=== PATIENT | female | born 1990 | race Caucasian/White ===

== ENCOUNTER 2017-01-02 10:10 | Emergency (ER) | payer OTHER, BC ==
[~2017-01-02] VITALS: Ht 172.7 cm; Wt 101.8 kg
[~2017-01-02 10:10] MED LIST: ALBUAER2 INH; AMPH30CA3 PO; DOXY50CA PO; FLUT0.15 NAE; HYOS1TAB PO; MONT1TAB3 PO
[2017-01-02 10:11] VITALS: TEMP 37.4; Ht 172.7 cm; Wt 101.8 kg
[2017-01-02] MEDS ORDERED: ALBU4TAB10 PO (11:01)
[2017-01-02] MEDS ORDERED: PRENTAB26 PO (11:01)
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
[2017-01-02 14:26] VITALS: BP 125/77; PULSE 78; O2SAT 99
== END 2017-01-02 14:28 | disposition home or self-care (01) ==
LOC: C.EDB 10:12
DX: O9A.212 Injury, poisoning and certain other consequences of external causes complicating pregnancy, second trimester (principal); S39.012A Strain of muscle, fascia and tendon of lower back, initial encounter; V43.52XA Car driver injured in collision with other type car in traffic accident, initial encounter; J45.909 Unspecified asthma, uncomplicated; K58.9 Irritable bowel syndrome, unspecified; K90.0 Celiac disease; M32.9 Systemic lupus erythematosus, unspecified; Z79.899 Other long term (current) drug therapy; Z91.018 Allergy to other foods; Z91.040 Latex allergy status; Z91.09 Other allergy status, other than to drugs and biological substances

== ENCOUNTER 2017-03-20 16:20 | Outpatient (CLI) | payer BC ==
[~2017-03-20 16:20] MED LIST changes: +ALBU4TAB10 PO; -ALBUAER2 INH; +PRENTAB26 PO
== END 2017-03-20 17:30 | disposition home or self-care (01) ==
LOC: C.OPB 16:20 → C.LD 16:20 → C.OPB 17:30
PROVIDERS: ATTEND Obstetrics & Gynecology
DX: O36.8190 Decreased fetal movements, unspecified trimester, not applicable or unspecified (principal); Z3A.00 Weeks of gestation of pregnancy not specified

== ENCOUNTER 2017-03-23 10:13 | Outpatient (CLI) | payer BC ==
[~2017-03-23] VITALS: Ht 172.7 cm; Wt 115.0 kg
[2017-03-23] MEDS ORDERED: VNTHFA/IN INH (10:46)
[2017-03-23] MEDS ORDERED: HYDR200T5 PO (10:47)
[2017-03-23 10:51] VITALS: Ht 172.7 cm; Wt 115.0 kg
--- NOTE | 2017-03-23 12:35 | Discharge Instructions ---
Discharge Instructions Date of Service Mar 23, 2017. Admission Reason for Admission: NST Discharge Discharge Diagnosis / Problem: PTL. decrease movement Discharge Goals Goal(s): Continuing OB care Activity Recommendations Activity Limitations: as noted below SPECIAL CARE INSTRUCTIONS: Call Doctor if: * Regular contractions every 5 minutes or greater than contractions in one hour. * Bleeding * Water breaks or is leaking * Decreased movement * Fever >100.4 degrees F * Pain not relieved by routine measures or pain medication ordered. FOLLOW UP VISIT: Return to Labor and Delivery on for /call for appointment time . Follow-up Visit with: When: . Current Hospital Diet Patient's current hospital diet: Discharge Diet Recommended Diet: Regular Diet Pending Studies Studies pending at discharge: no Medical Emergencies . Who to Call and When: Medical Emergencies: If at any time you feel your situation is an emergency, please call 911 immediately. . Non-Emergent Contact Non-Emergency issues call your: Specialist . . "Provider Documentation" section prepared by Jean Saldana. . VTE Core Measure Inpt VTE Proph given/why not?: Treatment not indicated
--- NOTE | 2017-03-23 12:38 | Progress Note ---
Progress Note Date of Service Mar 23, 2017. Progress Note Pt seen and evaluated course.labs .PMH, PSH. Rober and allergies reviewed FHR; CAT1 Cts ;2-3 Ve Unchanged from office exam Pt now feels movement and is pleased d/c home with instructions
== END 2017-03-23 12:29 | disposition home or self-care (01) ==
LOC: C.OPB 10:13 → C.LD 10:14 → C.OPB 12:29
PROVIDERS: ATTEND Obstetrics & Gynecology
DX: O60.00 Preterm labor without delivery, unspecified trimester (principal); O36.8190 Decreased fetal movements, unspecified trimester, not applicable or unspecified; Z3A.00 Weeks of gestation of pregnancy not specified

== ENCOUNTER 2017-04-06 14:14 | Outpatient (CLI) | payer BC ==
[~2017-04-06 14:14] MED LIST changes: -ALBU4TAB10 PO; -AMPH30CA3 PO; -DOXY50CA PO; -FLUT0.15 NAE; +HYDR200T5 PO; -HYOS1TAB PO; -MONT1TAB3 PO; +VNTHFA/IN INH
[2017-04-06] MEDS ORDERED: OXYCODONE/ACETAMINOPHEN 5-325 TAB PO PRN (14:45)
[2017-04-06 15:13] LABS: BASO % 0.1 %; BASO ABS # 0.01 K/uL (0-0.2); COMPLETE YES; EOS % 0.1 %; HEMATOCRIT 37.9 % (37-47); IG% 0.3 %; LYMPH % 11.4 %; LYMPH ABS # 1.54 K/uL (1.2-3.4); MEAN CELL VOLUME 93.6 fL (80-100); MEAN CORPUSCULAR HEMOGLOBIN 32.6 pg (25-34); MEAN CORPUSCULAR HGB CONC 34.8 g/dl (32-36); MONO % 7.4 %; NEUT % 80.7 %; PLATELET COUNT 178 K/uL (130-400); RED BLOOD COUNT 4.05 M/uL (4.2-5.4); WHITE BLOOD COUNT 13.46 K/uL (4.8-10.8)
[2017-04-06 15:36] LABS: URINE APPEARANCE CLEAR (CLEAR); URINE BILIRUBIN NEG (NEG); URINE COLOR DK YELLOW; URINE EPITHELIAL CELL AUTO >30 /lpf (0-5); URINE NITRITE NEG (NEG); UROBILINOGEN NEG (NEG); ZZUR CULT IF INDIC CLEAN CATCH NO
[2017-04-06 15:41] LABS: MANUAL MICROSCOPIC REQUIRED? NO; REVIEW REQ? NO
[2017-04-06 15:53] LABS: ALT/SGPT 17 U/L (12-78); AST/SGOT 13 U/L (15-37); BLOOD UREA NITROGEN 8 mg/dl (7-18); BUN/CREATININE RATIO 14.6 (10-20); CALCIUM 8.8 mg/dl (8.5-10.1); CARBON DIOXIDE 24 mmol/L (21-32); CHLORIDE 107 mmol/L (98-107); CREATININE 0.58 mg/dl (0.60-1.20); GLUCOSE 111 mg/dl (70-99); POTASSIUM 3.7 mmol/L (3.5-5.1); SODIUM 135 mmol/L (136-145)
[2017-04-06 15:56] LABS: ALB/GLOB RATIO 0.7 (0.9-2); ALKALINE PHOSPHATASE 185 U/L (45-117)
[2017-04-06 16:13] LABS: URINE PROTIEN/CREAT RATIO 0.2 (0-0.2); URINE TOTAL PROTEIN 18.8 mg/dl (0-11.9)
--- NOTE | 2017-04-06 16:37 | Discharge Instructions ---
Discharge Instructions Date of Service Apr 06, 2017. Admission Reason for Admission: Blood Pressure Check Discharge Discharge Diagnosis / Problem: Musculoskeletal pain of Discharge Goals Goal(s): Continuing OB care Medications Continue Dispensed Medications: other Activity Recommendations Activity Limitations: as noted below SPECIAL CARE INSTRUCTIONS: Call Doctor if: * Regular contractions every 5 minutes or greater than 5 contractions in one hour. * Bleeding5 * Water breaks or is leaking * Decreased movement * Fever >100.4 degrees F * Pain not relieved by routine measures or pain medication ordered. FOLLOW UP VISIT: Return to Labor and Delivery on for /call for appointment time . Follow-up Visit with: When: . Current Hospital Diet Patient's current hospital diet: Discharge Diet Recommended Diet: Regular Diet Pending Studies Studies pending at discharge: no Work Instructions Return To Work: after follow-up (patient to be off from work until after delivery, period) Medical Emergencies . Who to Call and When: Medical Emergencies: If at any time you feel your situation is an emergency, please call 911 immediately. . Non-Emergent Contact Non-Emergency issues call your: Specialist Call Non-Emergent contact if: temperature is above 100.5, your pain is not controlled . . "Provider Documentation" section prepared by Abraham Johnson. . VTE Core Measure Inpt VTE Proph given/why not?: Treatment not indicated
== END 2017-04-06 16:45 | disposition home or self-care (01) ==
LOC: C.OPB 14:14 → C.LD 14:14 → C.OPB 16:45
PROVIDERS: ATTEND Obstetrics & Gynecology
DX: O26.893 Other specified pregnancy related conditions, third trimester (principal); M54.9 Dorsalgia, unspecified; R51 Headache; R10.2 Pelvic and perineal pain; M25.559 Pain in unspecified hip; Z3A.37 37 weeks gestation of pregnancy

== ENCOUNTER 2017-04-14 19:33 | Inpatient (IN) | payer BC ==
[~2017-04-14] VITALS: Ht 172.7 cm; Wt 122.5 kg
[2017-04-14] MEDS ORDERED: LACTATED RINGER'S 1000ML 1,000 ML IV PRN (19:39)
[2017-04-14] MEDS ORDERED: DINOPROSTONE 10 MG INSERT PV ONE (19:45)
[2017-04-14 19:57] VITALS: Ht 172.7 cm; Wt 122.5 kg
[2017-04-14 20:17] LABS: HEMATOCRIT 38.3 % (37-47); HEMOGLOBIN 13.6 g/dL (12.0-16.0); MEAN CELL VOLUME 93.6 fL (80-100); MEAN CORPUSCULAR HEMOGLOBIN 33.3 pg (25-34); MEAN CORPUSCULAR HGB CONC 35.5 g/dl (32-36); MEAN PLATELET VOLUME 13.2 fL (7.4-10.4); PLATELET COUNT 182 K/uL (130-400); RED CELL DISTRIBUTION WIDTH CV 13.6 % (11.5-14.5); RED CELL DISTRIBUTION WIDTH SD 46.3 fL (36.4-46.3); WHITE BLOOD COUNT 13.63 K/uL (4.8-10.8)
[2017-04-15] MEDS ORDERED: HYDROXYCHLOROQUINE SULFATE 200 MG TAB PO SCH (08:00)
[2017-04-15] MEDS ORDERED: OXYTOCIN 30 UNITS/500ML NSS IV PRN ×2 (08:15→19:30)
[2017-04-15] MEDS ORDERED: LACTATED RINGER'S 1000ML 500 ML IV PRN ×2 (08:15→12:00)
[2017-04-15] MEDS ORDERED: ALBUTEROL HFA 8 GM INHALER INH PRN (08:30)
[2017-04-15] MEDS: LACTATED RINGER'S 1000ML 1,000 ML IV SCH ×2 (09:25→11:48)
[2017-04-15] MEDS ORDERED: EpHEDrine SULFATE INJ 50 MG/ML AMP ONE (10:43)
[2017-04-15] MEDS ORDERED: BUPIVACAINE 0.25% 30 ML VIAL ONE (10:43)
[2017-04-15] MEDS ORDERED: FENTANYL CITRATE INJ 50 MCG/1 ML 2 ML VIAL ONE ×2 (10:44→15:52)
[2017-04-15] MEDS ORDERED: FENTANYL 2MCG/ML ROPIV 1.25MG/ML 100ML BAG EPI ONE (10:44)
[2017-04-15] MEDS ORDERED: NALOXONE HCL INJ 1 MG in SODIUM CHLORIDE 0.9% 1000ML 1,000 ML IV PRN (12:00)
[2017-04-15] MEDS ORDERED: NALBUPHINE HCL INJ 10 MG/ML 1ML AMP IV PRN (12:00)
[2017-04-15] MEDS ORDERED: DiphenhydrAMINE HCL 50 MG/ML VIAL IV PRN (12:00)
[2017-04-15] MEDS ORDERED: EpHEDrine SULFATE INJ 50 MG/ML AMP IV PRN (12:00)
[2017-04-15] MEDS ORDERED: NALOXONE HCL INJ 0.4 MG/1 ML VIAL/CARP IV PRN (12:00)
[2017-04-15] MEDS ORDERED: FENTANYL 2MCG/ML ROPIV 1.25MG/ML 100ML BAG EPI PRN (12:00)
[2017-04-15] MEDS ORDERED: LACTATED RINGER'S 1000ML 1,000 ML IV SCH (19:24)
[2017-04-15] MEDS ORDERED: BENZOCAINE 20% AER SPR 82.5 GM CAN EXT PRN (19:30)
[2017-04-15] MEDS ORDERED: LANOLIN OINT EXT PRN (19:30)
[2017-04-15] MEDS ORDERED: HYDROCORTISONE ACETATE 25 MG SUPP PR PRN (19:30)
[2017-04-15] MEDS ORDERED: ACETAMINOPHEN 325 MG TAB PO PRN (19:30)
[2017-04-15] MEDS ORDERED: SUPERCREAM 0.870 % 15GM JAR EXT PRN (19:30)
[2017-04-15] MEDS: HYDROXYCHLOROQUINE SULFATE 200 MG TAB PO SCH (20:00)
[2017-04-15] MEDS: DOCUSATE SODIUM 100 MG CAP PO SCH (20:00)
--- NOTE | 2017-04-15 20:47 | Anesthesia Procedure Note ---
Anesthesia Epidural Removal Nt Date & Time Apr 15, 2017 at 20:47 Vital Signs Pain Intensity: 0.0 Notes Mental Status: alert / awake / arousable, participated in evaluation Nausea / Vomiting: adequately controlled Pain: adequately controlled Airway Patency, RR, SpO2: stable & adequate BP & HR: stable & adequate Hydration State: stable & adequate Neuraxial Anesthesia: was administered, sensory block is resolving Anesthetic Complications: no major complications apparent, pt satisfied with anesthetic care Epidural: removed without complications, with tip intact
[2017-04-15 22:10] VITALS: BP 131/80; PULSE 80; TEMP 37.1
[2017-04-15] MEDS: IBUPROFEN 600 MG TAB PO PRN (23:35)
[2017-04-15] MEDS: OXYCODONE/ACETAMINOPHEN 5-325 TAB PO PRN (23:36)
[2017-04-16] VITALS (7 sets, daily range): BP systolic 100–146; BP diastolic 63–85; PULSE 72–103; TEMP 36.6–37.1; O2SAT 96–98
--- NOTE | 2017-04-16 00:24 | DELIVERY SUMMARY ---
DATE OF OPERATION: 04/15/2017 TIME OF DELIVERY OF BABY: 1852 hours. TIME OF DELIVERY OF PLACENTA: 1904 hours. DETAILS OF DELIVERY: The patient was found to be fully dilated and desired to push. She pushed for about 50 minutes and the head was over the perineum. There was tight band around the hymen and perineal skin. After verbal consent was obtained, a small right medial lateral episiotomy was opened and the head was delivered without difficulty. Unable to deliver anterior, left, shoulder with minimal traction. The the patient's legs were hyperextended with McRobert's maneuver and then, upon palpation, posterior, right, shoulder was found to be closer to the perineum, which was delivered with minimal traction by aiding the fingers under right axilla. Then the anterior shoulder was delivered with minimal traction. The baby was handed off to the mother. Mouth and nose were suctioned. Cord was clamped x2 and cut. The baby was handed off to the awaiting nursing team. Vagina and perineum were checked for lacerations. There was only a small right mediolateral episiotomy, which was opened earlier. It was confirmed to be a second degree Good sphincter tone was noted and the gloves were changed. The episiotomy was repaired with 2-0 Vicryl in a running locked fashion and the skin in a subcuticular fashion. Excellent hemostasis was achieved. The placenta was found to be in the vagina, delivered spontaneously as intact and complete. Uterus was explored and found to be empty. Lower segment was cleared of all clots and debris. Fundus was firm. EBL was 300. The vagina and cervix were checked again with retractors and they were found to be intact. The rectal exam was repeated. Good sphincter tone was noted and no sutures were felt. Gloves were changed. Sponge, needle and instrument counts were correct x2. The baby was a viable female , Apgars 7/9. Weight was 3905 gr. Mom and baby tolerated the procedure well. No complications happened, and I was present during whole procedure. I attest to the content of the Intraoperative Record and any orders documented therein. Any exceptions are noted below. ELLIOT
[2017-04-16 06:53] LABS: HEMOGLOBIN 11.5 g/dL (12.0-16.0); MEAN CORPUSCULAR HEMOGLOBIN 32.8 pg (25-34); MEAN CORPUSCULAR HGB CONC 34.8 g/dl (32-36); MEAN PLATELET VOLUME 12.7 fL (7.4-10.4); PLATELET COUNT 159 K/uL (130-400); RED CELL DISTRIBUTION WIDTH CV 13.7 % (11.5-14.5); RED CELL DISTRIBUTION WIDTH SD 46.3 fL (36.4-46.3); WHITE BLOOD COUNT 18.13 K/uL (4.8-10.8)
--- NOTE | 2017-04-16 07:21 | OB/GYN Progress Note ---
POLICY ADVISER Progress Note Date of Service Apr 16, 2017. Subjective conversation w/ patient Ambulation: ambulating normally Voiding: no voiding problems Passing Gas: Yes Diet Tolerance: Regular Diet Lochia: Small Feeding Type: Breast Feeding Pain: / Notes: Doing well. Pain well controlled. Tolerating regular diet. Ambulating without difficulty. Lochia decreasing. Review of Systems Constitutional: No fever, No chills, No sweats, No weight loss, No weakness, No fatigue, No problem reported Respiratory: No cough, No sputum, No wheezing, No shortness of breath, No dyspnea on exertion, No dyspnea at rest, No hemoptysis, No problem reported Cardiac: No chest pain, No orthopnea, No PND, No edema, No claudication, No palpitations, No problem reported Abdomen: No pain, No nausea, No vomiting, No diarrhea, No constipation, No GI bleeding, No problem reported Female : No see HPI, No dysuria, No urinary frequency, No hematuria, No incontinence, No abnormal vaginal bleeding, No vaginal discharge, No problem reported Objective Vital Signs Date Time Temp Pulse Resp B/P (MAP) Pulse Ox O2 Delivery O2 Flow Rate FiO2 04/16/17 04:30 36.9 72 18 117/69 (85) Room Air 04/16/17 00:00 37.0 103 18 143/85 (104) Room Air 04/16/17 00:00 Room Air 04/15/17 22:10 37.1 80 131/80 (97) Room Air 04/15/17 22:10 Room Air Laboratory Results Last 24 Hours Test 04/16/17 06:37 White Blood Count 18.13 K/uL Red Blood Count 3.51 M/uL Hemoglobin 11.5 g/dL Hematocrit 33.0 % Mean Corpuscular Volume 94.0 fL Mean Corpuscular Hemoglobin 32.8 pg Mean Corpuscular Hemoglobin Concent 34.8 g/dl RDW Standard Deviation 46.3 fL RDW Coefficient of Variation 13.7 % Platelet Count 159 K/uL Mean Platelet Volume 12.7 fL Assessment and Plan Post- Day Number: 1 Continue Routine Care: -Continue routine care -BP's stable -Anticipate D/C home tomorrow.
[2017-04-16 07:30] LABS: ALBUMIN 2.4 gm/dl (3.4-5.0); CALCIUM 8.3 mg/dl (8.5-10.1); CREATININE 0.66 mg/dl (0.60-1.20); POTASSIUM 3.8 mmol/L (3.5-5.1)
[2017-04-16 07:33] LABS: TOTAL PROTEIN 5.5 gm/dl (6.4-8.2)
[2017-04-16] MEDS: IBUPROFEN 600 MG TAB PO PRN ×3 (07:55→23:39)
[2017-04-16] MEDS: FERROUS SULFATE 325 MG TAB PO SCH (07:55)
[2017-04-16] MEDS: PRENATAL VITAMIN TAB PO SCH (07:56)
[2017-04-16] MEDS: DOCUSATE SODIUM 100 MG CAP PO SCH ×2 (07:56→19:55)
[2017-04-16] MEDS ORDERED: DIPHTHERIA/TETANUS/PERTUSSIS 0.5 ML SYR/VIAL IM. ONE (09:00)
[2017-04-16] MEDS ORDERED: MEASLES, MUMPS & RUBELLA VIRUS VIAL SQ. ONE (09:00)
[2017-04-16] MEDS: OXYCODONE/ACETAMINOPHEN 5-325 TAB PO PRN ×2 (14:11→23:39)
[2017-04-16] MEDS: HYDROXYCHLOROQUINE SULFATE 200 MG TAB PO SCH (19:55)
[2017-04-16] MEDS ORDERED: BISACODYL 5 MG TABEC PO SCH (20:00)
[2017-04-16] MEDS ORDERED: HYDROXYCHLOROQUINE SULFATE 200 MG TAB PO SCH (20:00)
[2017-04-17] MEDS ORDERED: BISACODYL 10 MG SUPP PR PRN (07:00)
[2017-04-17] MEDS ORDERED: ACET-1047 PO (07:59)
[2017-04-17] MEDS ORDERED: MTR600X PO (07:59)
--- NOTE | 2017-04-17 07:59 | Discharge Instructions ---
Discharge Instructions Date of Service Apr 17, 2017. Admission Reason for Admission: Induction Discharge Discharge Diagnosis / Problem: Discharge Goals Goal(s): Routine recovery after delivery Medications Continue Dispensed Medications: lansinoh Activity Recommendations Activity Limitations: as noted below ACTIVITY RECOMMENDATIONS: * Gradual return to full activity over the next 2-3 weeks. * No lifting - nothing heavier than baby over the next 2-3 weeks. * Do not engage in vigorous exercise, sexual activity or sports until cleared by your physician. * Do not drive or operate any motorized equipment until cleared by your physician. * You may shower/bathe daily. BREAST CARE: If you are not breast feeding: * Wear a supportive bra 24 hours a day for one to two weeks. * Avoid stimulating your breasts and nipples as much as possible during the first few weeks after delivery. * When taking a shower, have the warm water hit your back, not breasts. * When your breasts feel full, apply ice packs. Usually three to four times a day helps ease the discomfort. * Take a mild pain medication (Tylenol/Motrin) when you are uncomfortable. If breast feeding: * Use breast milk to lubricate nipples. Lansinoh cream may be used for sore nipples. You do not need to remove cream prior to breast feeding. If using a different brand of cream, check the label for directions regarding removal of cream prior to nursing. * Wear a supportive bra. * If having problems with breasts or breast feeding, call a entry level sales consultant or your health care provider. EPISIOTOMY CARE: After delivery, if you have an episiotomy (stitches), the following steps will ease discomfort and aid healing. * For the first 24 hours after delivery, place ice packs next to your episiotomy to help reduce swelling. * After the first 24 hour-period, sitz baths, either portable or in the tub, are suggested. A shower with a shower arm sprayed over the episiotomy may be comforting. * Rossy care should be done after each voiding and bowel movement. Squirt warm water from a plastic bottle over the perineum (region of the body between the anus and urinary opening) and pat dry. * Use Dermoplast to ease discomfort. Shake container. Williamson directly over the episiotomy. * Place a Tucks on a clean sanitary pad next to your episiotomy. OVER THE COUNTER MEDICATION: * For discomfort or pain, you may use Acetaminophen (Tylenol), Ibuprofen (Advil ), or Naproxen (Aleve) following the package directions. * For constipation you may use Colace following the package directions. SPECIAL CARE INSTRUCTIONS: When you are discharged from the hospital, it is important for you to follow the instructions listed below: * During the first week at home, you should be able to care for yourself and your baby. In addition, the usual light household activities are encouraged. * Limit your activities to the way you feel. Do not try to clean the house or move furniture. Be sensible. * If you actively engage in sports and have done so up until the time of your delivery, you may resume these activities as soon as you feel able. This may take up to one month or even longer. Use good judgment. * Continue to take your vitamins for at least six weeks after the of your baby. * Your diet need not be limited unless you were on a special diet before your delivery. Breast-feeding mothers need around 2500 calories per day and at least 64-80 ounces of fluid per day (8 to 10 glasses). * You should eat foods from the four major food groups. Crash diets or fad diets are to be avoided. Eating lean meats, fresh fruits and vegetables, low-fat dairy products, high fiber foods and a regular exercise program, will help you get back to your pre- weight without putting your health at risk. * Constipation is sometimes a problem after delivery. Take a mild laxative as needed. If breast feeding, Milk of Magnesia is acceptable to use. You may use a suppository or Fleets enema if no episiotomy. * A daily shower or tub bath is suggested. Be sure to thoroughly and gently dry the perineum. * A bloody vaginal discharge will usually continue until around four weeks post . A small amount of bleeding may continue for as long as six weeks. Vaginal discharge changes from the bright red bleeding after delivery to pink then brownish and finally yellowish-pink before becoming white and disappearing. * Bleeding may increase with activity. Your first period may come in 4-8 weeks. If you are breast feeding, your period may be delayed even longer. * [place] (sex) can begin whenever both you and your partner feel comfortable and do not have any form of genital infection. It is recommended that you wait until after your return appointment and discuss with your physician. If you have questions, please talk to your health care practitioner. A condom should be used to prevent infection and . * Foreplay, gentle intercourse and lubrication is very important the first several times to prevent pain. A water-based lubricant such as K-Y jelly or Astroglide may be used. * Tampons may be used six weeks after delivery. * Douching should be avoided for 6 weeks after delivery. * If you have RH negative blood and your baby is RH positive, you will receive RHOGAM by injection prior to discharge. The nurse will give you a card to keep with you that has the date and place that you received RHOGAM after delivery. * During your care, you had a Rubella screen done to check for the presence of rubella antibodies in your blood. If your test was negative, you will receive a Rubella vaccine prior to discharge. This vaccine may cause a fever, soreness at the injection site and flu-like symptoms. If these symptoms persist, notify your health care practitioner. is not advised for three months after a Rubella vaccine. There is a higher chance of having a baby with defects if conceived within three months of getting the vaccine. * If you were discharged 24 hours from delivery or before 48 hours: Visiting nurses will come to your home 48 hours after discharge to assess you and your baby. The visiting nurse will meet with you while you are in the hospital to arrange a time and get directions to your home. * Verbalizes understanding of car seat law as reviewed with patient nursing. * Car Seat hand-out given and reviewed with patient by nursing. * Shaken baby information reviewed with patient by nursing. Call you doctor if: * Heavy bleeding (saturating several pads an hour) or passing clots the size of your fist. * A fever >101 degrees F (38.3 degrees C) on two occasions four hours apart and/or chills. * Unusual pain in the pelvic or vaginal areas. * "Baby Blues" lasting longer than two weeks. If you have any questions or concerns, call your health care practitioner at . FOLLOW-UP VISIT: * Please call the office at to schedule a 6 week examination. It is important you keep this appointment. * It is important for you to make arrangements for either yearly or twice yearly check-ups thereafter. . Current Hospital Diet Patient's current hospital diet: Regular OB Diet Discharge Diet Recommended Diet: Regular Diet Pending Studies Studies pending at discharge: no Medical Emergencies . Who to Call and When: Medical Emergencies: If at any time you feel your situation is an emergency, please call 911 immediately. . Non-Emergent Contact Non-Emergency issues call your: Surgeon, Specialist Call Non-Emergent contact if: temperature is above 100.5, your pain is not controlled, your pain is worsening . . "Provider Documentation" section prepared by Abraham Johnson. . VTE Core Measure Inpt VTE Proph given/why not?: Treatment not indicated
[2017-04-17] MEDS: PRENATAL VITAMIN TAB PO SCH (08:21)
[2017-04-17] MEDS: DOCUSATE SODIUM 100 MG CAP PO SCH (08:21)
[2017-04-17] MEDS: FERROUS SULFATE 325 MG TAB PO SCH (08:21)
[2017-04-17 08:33] LABS: BASO % 0.2 %; BASO ABS # 0.02 K/uL (0-0.2); EOS % 0.3 %; EOS ABS # 0.04 K/uL (0-0.5); HEMATOCRIT 33.6 % (37-47); HEMOGLOBIN 11.4 g/dL (12.0-16.0); IG# 0.05 K/uL (0.00-0.02); LYMPH % 14.9 %; LYMPH ABS # 1.89 K/uL (1.2-3.4); MEAN CELL VOLUME 95.7 fL (80-100); MEAN CORPUSCULAR HEMOGLOBIN 32.5 pg (25-34); MEAN CORPUSCULAR HGB CONC 33.9 g/dl (32-36); MEAN PLATELET VOLUME 12.8 fL (7.4-10.4); MONO % 6.6 %; MONO ABS # 0.83 K/uL (0.11-0.59); NEUT % 77.6 %; NEUT ABS # 9.83 K/uL (1.4-6.5); PLATELET COUNT 178 K/uL (130-400); RED CELL DISTRIBUTION WIDTH SD 48.4 fL (36.4-46.3); WHITE BLOOD COUNT 12.66 K/uL (4.8-10.8)
[2017-04-17 08:35] VITALS: BP 124/76; PULSE 73; TEMP 37; O2SAT 99
--- NOTE | 2017-04-17 08:57 | OB/GYN Progress Note ---
[employer] Progress Note Date of Service: Apr 17, 2017. Patient is seen and examined. She feels well, no complaints. Ambulating without dizziness Voiding without difficulty Tolerating regular diet with out N&V Bleeding is minimal No fever/ chills/ CP/ SOB/ N&V/ Leg pain Breast feeding without problems Date Time Temp Pulse Resp B/P (MAP) Pulse Ox O2 Delivery O2 Flow Rate FiO2 04/16/17 23:20 97 Room Air 04/16/17 23:20 36.8 87 18 106/67 (80) 97 Room Air 04/16/17 16:10 121/78 (92) 04/16/17 16:10 Room Air 04/16/17 15:34 37.0 86 20 146/83 (104) 98 Room Air 04/16/17 11:27 37.1 80 18 119/71 (87) 97 Room Air 04/16/17 08:00 Room Air Test 04/06/17 14:20 04/06/17 14:54 04/14/17 20:08 04/16/17 06:37 Urine Color DK YELLOW Urine Appearance CLEAR Urine pH 6.0 Urine Specific [place] 1.020 Urine Protein NEG Urine Glucose (UA) NEG Urine Ketones NEG Urine Occult Blood NEG Urine Nitrite NEG Urine Bilirubin NEG Urine Urobilinogen NEG Urine Leukocyte Esterase TRACE H Urine WBC (Auto) 1-5 Urine RBC (Auto) 0-4 Urine Hyaline Casts (Auto) 1-5 Urine Epithelial Cells (Auto) >30 H Urine Bacteria (Auto) NEG Urine Random Creatinine 126.0 Urine Random Total Protein 18.8 H Urine Protein/Creatinine Ratio 0.2 White Blood Count 13.46 H 13.63 H 18.13 H Red Blood Count 4.05 L 4.09 L 3.51 L Hemoglobin 13.2 13.6 11.5 L Hematocrit 37.9 38.3 33.0 L Mean Corpuscular Volume 93.6 93.6 94.0 Mean Corpuscular Hemoglobin 32.6 33.3 32.8 Mean Corpuscular Hemoglobin Concent 34.8 35.5 34.8 Platelet Count 178 182 159 Mean Platelet Volume 13.0 H 13.2 H 12.7 H Neutrophils (%) (Auto) 80.7 Lymphocytes (%) (Auto) 11.4 Monocytes (%) (Auto) 7.4 Eosinophils (%) (Auto) 0.1 Basophils (%) (Auto) 0.1 Neutrophils # (Auto) 10.86 H Lymphocytes # (Auto) 1.54 Monocytes # (Auto) 0.99 H Eosinophils # (Auto) 0.02 Basophils # (Auto) 0.01 RDW Standard Deviation 46.3 46.3 46.3 RDW Coefficient of Variation 13.5 13.6 13.7 Immature Granulocyte % (Auto) 0.3 Immature Granulocyte # (Auto) 0.04 H Sodium Level 135 L 135 L Potassium Level 3.7 3.8 Chloride Level 107 105 Carbon Dioxide Level 24 25 Anion Gap 4.0 5.0 Blood Urea Nitrogen 8 7 Creatinine 0.58 L 0.66 Estimated GFR () 148.5 142.3 Estimated GFR (Non- 128.1 122.8 BUN/Creatinine Ratio 14.6 9.9 L Random Glucose 111 H 86 Calcium Level 8.8 8.3 L Total Bilirubin 0.3 0.6 Aspartate Amino Transferase (AST) 13 L 29 Alanine Aminotransferase (ALT) 17 19 Alkaline Phosphatase 185 H 161 H Total Protein 6.2 L 5.5 L Albumin 2.6 L 2.4 L Globulin 3.6 3.1 Albumin/Globulin Ratio 0.7 L 0.8 L Est Creatinine Clear Calc Drug Dose 179.6 Last 24 Hours Test 04/17/17 08:02 White Blood Count 12.66 K/uL Red Blood Count 3.51 M/uL Hemoglobin 11.4 g/dL Hematocrit 33.6 % Mean Corpuscular Volume 95.7 fL Mean Corpuscular Hemoglobin 32.5 pg Mean Corpuscular Hemoglobin Concent 33.9 g/dl Platelet Count 178 K/uL Mean Platelet Volume 12.8 fL Neutrophils (%) (Auto) 77.6 % Lymphocytes (%) (Auto) 14.9 % Monocytes (%) (Auto) 6.6 % Eosinophils (%) (Auto) 0.3 % Basophils (%) (Auto) 0.2 % Neutrophils # (Auto) 9.83 K/uL Lymphocytes # (Auto) 1.89 K/uL Monocytes # (Auto) 0.83 K/uL Eosinophils # (Auto) 0.04 K/uL Basophils # (Auto) 0.02 K/uL RDW Standard Deviation 48.4 fL RDW Coefficient of Variation 14.0 % Immature Granulocyte % (Auto) 0.4 % Immature Granulocyte # (Auto) 0.05 K/uL PE: General: Alert, orientedx3, NAD Abd: soft, NT, fundus firm, below Umbilicus Perineum intact, Lochia rubra minimal Ext; NT, no edema AP: 26 yo s/p , ppd# 2 VSS Afebrile doing well Continue routine care Instructions were given when to call All questions were answered D/C home , f/u in office
--- NOTE | 2017-04-17 12:00 | NUR ---
Patient given discharge instructions for herself and at this time. Patient verbalized understanding of instructions at this time. Patient given additional information on dvt, depression, and jaundice. Patient given packet to use a reference upon discharge. Patient to be discharged to home with infant at this time. Patients mother and family is here to help for support and take patient home.
[2017-04-17 12:30] VITALS: BP_DIAS 76; PULSE 73; TEMP 37
--- NOTE | 2017-04-17 12:50 | NUR ---
Patient discharged to home with at this time. Patient escorted to the front of the hospital via wheelchair by volunteer.
== END 2017-04-17 12:50 | disposition home or self-care (01) | DRG 775 ==
LOC: C.LD 19:33 → C.OBG 04-15 22:17
PROVIDERS: ADMIT Obstetrics & Gynecology; ATTEND Obstetrics & Gynecology
PROC: 3E0P4GC Introduction of Other Therapeutic Substance into Female Reproductive, Percutaneous Endoscopic Approach (ICD-10-PCS; principal; 2017-04-14)
PROC: 0W8NXZZ Division of Female Perineum, External Approach (ICD-10-PCS; 2017-04-15)
PROC: 10E0XZZ Delivery of Products of Conception, External Approach (ICD-10-PCS; 2017-04-15)
PROC: 10907ZC Drainage of Amniotic Fluid, Therapeutic from Products of Conception, Via Natural or Artificial Opening (ICD-10-PCS; 2017-04-15)
DX: O12.14 Gestational proteinuria, complicating childbirth (principal); O76 Abnormality in fetal heart rate and rhythm complicating labor and delivery; Z3A.39 39 weeks gestation of pregnancy; Z37.0 Single live birth